=== PATIENT | male | born 1955 | race African-American/Black ===

== ENCOUNTER → 2017-01-30 14:11 | Emergency (ER) | payer BC ==
[~2017-01-30 14:11] MED LIST: ADVAIR250 INH; AT25 PO; BACTROINT TOP; BESIVANCE0.6 % OPH; FISH-EPA1000 MG PO; FLONASE NAS; FORTAMET500 MG PO; GLUCOPHAGE1000 MG PO; GLUCPH PO; IBU800 PO; LIPITOR10 PO; MAGOX4 PO; MAXIMUM D3 PO; MAXZIDE PO; NAP500 PO; NEUR300 PO; NEUR400 PO; NEVANAC OPH; NORCO1 TA1 PO; NORV10 PO; PATANOL OPH; PROAIR HFA INH; PROSTATE MEDICATION; PROTONIX PO; PROVENTSOL INH; SEPTRA DS1 TAB PO; SPIRO50 PO; VENTOLIN HFA INH; VIST25 PO; VITAMIN D31000 UNIT PO; VITD PO; [UNRECOGNIZED DRUG - OTHER] OP
== END | disposition home or self-care (01) ==
LOC: ER 14:11
PROC: 0HQ0XZZ Repair Scalp Skin, External Approach (ICD-10-PCS; principal; 2017-01-30)
DX: S01.01XA Laceration without foreign body of scalp, initial encounter (principal); I10 Essential (primary) hypertension; E11.40 Type 2 diabetes mellitus with diabetic neuropathy, unspecified; Z79.84 Long term (current) use of oral hypoglycemic drugs; Z79.899 Other long term (current) drug therapy; W45.8XXA Other foreign body or object entering through skin, initial encounter
CPT/HCPCS: 70450; 90471; 90714; 99283; A9270-GY

== ENCOUNTER 2017-02-05 13:27 | Emergency (ER) | payer BC | END 2017-02-05 17:22 | disposition home or self-care (01) | LOC: ER 13:27 | DX: S01.01XD Laceration without foreign body of scalp, subsequent encounter (principal); J45.909 Unspecified asthma, uncomplicated; I10 Essential (primary) hypertension; E78.00 Pure hypercholesterolemia, unspecified; E11.9 Type 2 diabetes mellitus without complications; Z85.46 Personal history of malignant neoplasm of prostate; Z79.899 Other long term (current) drug therapy | CPT/HCPCS: 99281 ==